=== PATIENT | male | born 1955 | race African-American/Black ===

== ENCOUNTER 2019-06-20 01:23 | Emergency (ER) | payer OTHER ==
[~2019-06-20] VITALS: Ht 180.3 cm; Wt 77.1 kg
[2019-06-20 01:28] VITALS: BP 140/90
--- NOTE | 2019-06-20 01:36 | NUR ---
ED Nurse Note: Patient brought in by ambulance with complaints of blood in urinary catheter. ERMd at bedside attempting to Dc and re-insert new sterile catheter.
[2019-06-20] MEDS ORDERED: BISACODYL10 M1 RC (01:49)
[2019-06-20] MEDS ORDERED: FLOMAX0.4 MG ORAL (01:49)
[2019-06-20] MEDS ORDERED: AMLODIPINE BESYL5 MG ORAL (01:49)
[2019-06-20] MEDS ORDERED: ACETAMINOPHEN500 M5 ORAL (01:49)
[2019-06-20] MEDS ORDERED: ELIQUIS5 MG PO (01:49)
[2019-06-20] MEDS ORDERED: ACETAMINOPHEN325 M1 ORAL (01:49)
[2019-06-20] MEDS ORDERED: COLACE100 MG ORAL (01:49)
--- NOTE | 2019-06-20 01:53 | Emergency Room Report ---
History of Present Illness General Chief Complaint: Pain Source: Patient Present Illness HPI This a 64-year-old male with a history of high blood pressure. He also has a psychiatric history with psychosis. He presents with chief complaint of pain over the suprapubic catheter area. He said is been ongoing for a week. Just painful. No nausea no vomiting. No fever chills but nothing made it better. Pulling at it or palpation made it worse. Similar symptom in the past. Allergies: Coded Allergies: No Known Allergies (Unverified , 06/20/19) Patient History Past Medical History: see triage record, old chart reviewed, HTN, psych hx Past Surgical History: other Pertinent Family History: none Social History: Denies: smoking Immunizations: other Reviewed Nursing Documentation: PMH: Agreed; PSxH: Agreed Nursing Documentation-PMH Past Medical History: No History, Except For Hx Hypertension: Yes History Of Psychiatric Problem: Yes - ANXIETY Review of Systems Eye: Denies: eye pain, blurred vision ENT: Denies: ear pain, nose congestion, throat swelling Respiratory: Denies: cough, shortness of breath Cardiovascular: Denies: chest pain, palpitations Gastrointestinal: Denies: abdominal pain, diarrhea, nausea, vomiting Genitourinary: Reports: dysuria, pain Musculoskeletal: Denies: back pain, joint pain Skin: Denies: rash Neurological: Denies: headache, numbness Endocrine: Denies: increased thirst, increased urine Hematologic/Lymphatic: Denies: easy bruising All Other Systems: negative except mentioned in HPI Physical Exam Vital Signs Date Time Temp Pulse Resp B/P (MAP) Pulse Ox O2 Delivery O2 Flow Rate FiO2 06/20/19 01:27 97.5 83 16 140/90 (107) 97 Room Air Vitals unremarkable Sp02 EP Interpretation: reviewed, normal General Appearance: well appearing, no apparent distress, alert Head: normocephalic, atraumatic Eyes: bilateral eye PERRL, bilateral eye EOMI ENT: hearing grossly normal, normal pharynx Neck: full range of motion, supple, no meningismus Respiratory: chest non-tender, lungs clear, normal breath sounds Cardiovascular #1: regular rate, rhythm, no murmur Gastrointestinal: normal bowel sounds, non tender, no mass, no organomegaly, no bruit, non-distended Genitourinary: other - He has a 24 Bulgarian catheter in. It appeared to be very old. Urine is cloudy. No erythema around the suprapubic catheter site. Musculoskeletal: back normal, normal range of motion Neurologic: grossly normal Psychiatric: other - Patient agitated and not cooperative. Procedures Additional Procedure Procedure Narrative Procedure: Suprapubic catheter placement/exchange Indication: Suprapubic catheter malfunction Description: I deflate the balloon. There was initially some difficulty removing the catheter. I tried to flush it but it would not flush. It was full of debris. I removed the catheter and there was full of debris and calcification on the inside and at the tip. I placed a 22 Bulgarian catheter without any difficulty. Balloon inflated. Urine removed. Patient tolerated procedure without any problem. Medical Decision Making Diagnostic Impression: Primary Impression: UTI (urinary tract infection) Qualified Codes: N30.01 - Acute cystitis with hematuria Additional Impression: Suprapubic catheter dysfunction Qualified Codes: T83.010A - Breakdown (mechanical) of cystostomy catheter, initial encounter ER Course Patient with a suprapubic catheter malfunction. It is blocked with calcification and debris. Patient has been urinating through his penis. Patient is not very cooperative. He refused blood work. He had recent blood work done less than a week ago and they were normal. Dose of antibiotics given here Last Vital Signs Date Time Temp Pulse Resp B/P (MAP) Pulse Ox O2 Delivery O2 Flow Rate FiO2 06/20/19 01:27 97.5 83 16 140/90 (107) 97 Room Air Status: improved Disposition: XFER SNF Condition: Stable Scripts Levofloxacin* (LEVAQUIN*) 500 Mg Tablet 500 MG ORAL DAILY, #7 TAB Prov: Bruce Weaver MD 06/20/19 Additional Instructions: Follow-up with your doctor in 7 days. return if symptoms worsen. Bruce Weaver MD Jun 20, 2019 01:53
[2019-06-20] MEDS ORDERED: DiphenhydrAMINE 50mg/ml Inj IM ONE (02:00)
[2019-06-20] MEDS ORDERED: Haloperidol 5mg/ml Inj IM ONE (02:00)
[2019-06-20] MEDS ORDERED: HYDROcodone/Acetamin 5/325 tab ORAL ONE ×2 (02:15→04:45)
[2019-06-20 02:30] LABS: APPEARANCE,URINE VERY CLOUDY; BILIRUBIN, URINE NEGATIVE (NEGATIVE); GLUCOSE, URINE (UA) NEGATIVE (NEGATIVE); KETONES,URINE 1+ (NEGATIVE); LEUKOCYTE ESTERASE ,URINE 3+ (NEGATIVE); NITRITE,URINE POSITIVE (NEGATIVE); PH,URINE 7 (4.5-8.0); PROTEIN,URINE 4+ (NEGATIVE); UROBILINOGEN,URINE NORMAL MG/DL (0.0-1.0)
[2019-06-20 02:43] LABS: COLOR,URINE AMBER
[2019-06-20] MEDS ORDERED: Levofloxacin 500mg tab ORAL ONE (03:00)
[2019-06-20] MEDS ORDERED: LEVAQUIN500 MG ORAL (03:16)
--- NOTE | 2019-06-20 04:29 | NUR ---
Spoke with Braulio ren [facility]-aware of patients return back home.
[2019-06-20 04:32] VITALS: BP 140/90
--- NOTE | 2019-06-20 04:32 | NUR ---
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 patient in stable condition, requested pain medication prior to departure. Medication rendered as ordered by ERMD.
== END 2019-06-20 04:32 ==
LOC: EDBD 01:23 → EMR 02:02
DX: T83.010A Breakdown (mechanical) of cystostomy catheter, initial encounter (principal); N30.01 Acute cystitis with hematuria; F41.9 Anxiety disorder, unspecified; X58.XXXA Exposure to other specified factors, initial encounter; Y92.9 Unspecified place or not applicable
CPT/HCPCS: 51702; 81003; 87086; 87181; 96372; J1200; J1630; Z7502; 99284

== ENCOUNTER 2019-11-26 08:19 | Inpatient (IN) | payer OTHER ==
[~2019-11-26] VITALS: Ht 175.3 cm; Wt 77.1 kg
[2019-11-26 08:19] VITALS: BP 134/72
[~2019-11-26 08:19] MED LIST: ACETAMINOPHEN325 M1 ORAL; ACETAMINOPHEN500 M5 ORAL; AMLODIPINE BESYL5 MG ORAL; BISACODYL10 M1 RC; COLACE100 MG ORAL; ELIQUIS5 MG PO; FLOMAX0.4 MG ORAL; LEVAQUIN500 MG ORAL
--- NOTE | 2019-11-26 08:29 | NUR ---
ED Nurse Note: Pt from [facility] brought in by [facility] due to abd pain and suprapubic clogging for a couple of days. Pt is also reported to be positive for covid. AAO x1, noted to be uncooperative and yells at ED staff. No respiratory distress.
[2019-11-26] MEDS ORDERED: VITAMIN B-1100 MG ORAL (08:31)
[2019-11-26] MEDS ORDERED: MULTIVITAMINS1 EAC8 ORAL (08:31)
[2019-11-26] MEDS ORDERED: MELATONIN5 M5 ORAL (08:31)
[2019-11-26] MEDS ORDERED: NORVASC10 MG ORAL (08:31)
[2019-11-26] MEDS ORDERED: NEURONTIN100 MG ORAL (08:31)
--- NOTE | 2019-11-26 08:35 | NUR ---
ED Nurse Note: Pt refused to be on a hospital gown and keeps refusing IV access. Dr Marx notified and ordered to cancel blood works.
--- NOTE | 2019-11-26 08:41 | Emergency Room Report ---
History of Present Illness General Chief Complaint: Abdominal Pain Source: Patient, Medical Record, EMS Present Illness HPI Disclaimer: Please note that this report is being documented using DRAGON technology. This can lead to erroneous entry secondary to incorrect interpretation by the dictating instrument. HPI: 64-year-old male presents from [facility] for evaluation of clogged suprapubic catheter. According to EMS catheter is been clogged for several days patient complaining of suprapubic pain. He has a history of psychiatric disorder and is agitated on arrival complaining of persistent belly pain. No reported fevers, vomiting or other changes in his health reported. 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 EOMI. Resp: Normal work of breathing Abdomen: Soft, nontender, tenderness in the suprapubic region. Suprapubic catheter in place, 16 Setswana. Unable to draw or flush Skin: Intact. No abrasions, laceration or rash over the exposed skin MSK: Normal tone and bulk. Moving all extremities. No obvious deformity. Neuro: Awake, combative with staff, refusing medical exam. Agitated. Medical Decision Making Restraint Reassesment I, Yuval Marx MD, have personally evaluated this patient. Laboratory tests have been reviewed and addressed accordingly. The patient is deemed to present a danger to themselves and/or others. This is based on the exam, history ( provided by patient, EMS/[facility] and/or family) and observed or reported behavior. Attempts for non-invasive measures have been considered and/or attempted, however, have been futile. It is in the best interest of the nursing staff, the patient, and others involved in this patient's care that behavioral restraints be applied. Patient evaluation reveals the following: Delirium, combativeness, danger to staff Diagnostic Impression: Primary Impression: Suprapubic catheter dysfunction Additional Impressions: UTI (urinary tract infection) Agitation ER Course This is 64-year-old male presenting from [facility] facility with a suprapubic catheter that appears to be malfunctioning. Unable to flush or draw from the suprapubic catheter and the patient has had history of obstruction in the past. Patient is combative with staff and agitated. For his and for staff safety restraints were used and the patient was mildly sedated. Attempted to replace the suprapubic catheter at bedside however was unable to deflate the balloon. Dr. Riojas from urology was consulted who was able to remove the old Siddiqui stating that it was significantly clogged with debris. He was able to replace with a new suprapubic catheter. He had recommended IV antibiotics and admission. I discussed with the patient's PMD, Dr. Joseph, will admit the patient onto his service. He will be kept in isolation as he is recent tested positive for COVID-19. Denies respiratory symptoms at this time. Laboratory Tests Test 11/26/19 08:37 11/26/19 12:30 Urine Color Brown Urine Appearance Slightly cloudy Urine pH 6.5 (4.5-8.0) Urine Specific [place] 1.020 (1.005-1.035) Urine Protein 4+ (NEGATIVE) H Urine Glucose (UA) Negative (NEGATIVE) Urine Ketones 3+ (NEGATIVE) H Urine Blood 5+ (NEGATIVE) H Urine Nitrite Positive (NEGATIVE) H Urine Bilirubin Negative (NEGATIVE) Urine Urobilinogen 1 MG/DL (0.0-1.0) H Urine Leukocyte Esterase 3+ (NEGATIVE) H Urine RBC 60-80 /HPF (0 - 0) H Urine WBC 60-80 /HPF (0 - 0) H Urine Squamous Epithelial Cells Occasional /LPF Urine Bacteria Many /HPF (NONE) H White Blood Count 8.6 K/UL (4.8-10.8) Red Blood Count 5.57 M/UL (4.70-6.10) Hemoglobin 14.4 G/DL (14.2-18.0) Hematocrit 43.6 % (42.0-52.0) Mean Corpuscular Volume 78 FL (80-99) L Mean Corpuscular Hemoglobin 25.8 PG (27.0-31.0) L Mean Corpuscular Hemoglobin Concent 33.0 G/DL (32.0-36.0) Red Cell Distribution Width 11.8 % (11.6-14.8) Platelet Count 327 K/UL (150-450) Mean Platelet Volume 6.5 FL (6.5-10.1) Neutrophils (%) (Auto) % (45.0-75.0) Lymphocytes (%) (Auto) % (20.0-45.0) Monocytes (%) (Auto) % (1.0-10.0) Eosinophils (%) (Auto) % (0.0-3.0) Basophils (%) (Auto) % (0.0-2.0) Differential Total Cells Counted 100 Neutrophils % (Manual) 65 % (45-75) Lymphocytes % (Manual) 25 % (20-45) Monocytes % (Manual) 10 % (1-10) Eosinophils % (Manual) 0 % (0-3) Basophils % (Manual) 0 % (0-2) Band Neutrophils 0 % (0-8) Platelet Estimate Adequate Platelet Morphology Normal Red Blood Cell Morphology Microcytosis 1+ Sodium Level 140 MMOL/L (136-145) Potassium Level 4.2 MMOL/L (3.5-5.1) Chloride Level 103 MMOL/L (98-107) Carbon Dioxide Level 24 MMOL/L (21-32) Anion Gap 13 mmol/L (5-15) Blood Urea Nitrogen 14 mg/dL (7-18) Creatinine 0.8 MG/DL (0.55-1.30) Estimated Glomerular Filtration Rate > 60 mL/min (>60) Glucose Level 104 MG/DL (74-106) Calcium Level 9.3 MG/DL (8.5-10.1) Last Vital Signs Date Time Temp Pulse Resp B/P (MAP) Pulse Ox O2 Delivery O2 Flow Rate FiO2 11/26/19 08:19 98.4 88 18 134/72 (92) 96 Room Air Disposition: ADMITTED INPATIENT Condition: Serious Referrals: Venu Joseph MD (PCP) Yuval Marx MD November 26, 2019 08:41
[2019-11-26] MEDS ORDERED: Morphine Sulfate 4mg/ml Inj (IV USE ONLY) IVP ONE (08:45)
[2019-11-26] MEDS ORDERED: Haloperidol 5mg/ml Inj IM ONE ×3 (08:45→11:45)
[2019-11-26 08:56] LABS: APPEARANCE,URINE SLIGHTLY CLOUDY; BILIRUBIN, URINE NEGATIVE (NEGATIVE); GLUCOSE, URINE (UA) NEGATIVE (NEGATIVE); KETONES,URINE 3+ (NEGATIVE); LEUKOCYTE ESTERASE ,URINE 3+ (NEGATIVE); NITRITE,URINE POSITIVE (NEGATIVE); PH,URINE 6.5 (4.5-8.0); PROTEIN,URINE 4+ (NEGATIVE); UROBILINOGEN,URINE 1 MG/DL (0.0-1.0)
[2019-11-26 08:57] LABS: COLOR,URINE BROWN
[2019-11-26] MEDS ORDERED: LORazepam Inj 2mg/ml 1ml IM ONE (09:15)
[2019-11-26 11:00] VITALS: BP 129/75
[2019-11-26] MEDS ORDERED: Mineral Oil 30ml ud ORAL ONE (11:15)
--- NOTE | 2019-11-26 12:00 | NUR ---
ED Nurse Note: Dr John at the bed side for removal of old suprapubic cath. Noted old crusting and foul smell. Inserted a new hernandez cath on suprapubic.
[2019-11-26] MEDS ORDERED: Piperacillin/Tazobactam 3.375 GM in NS 110 ML IVPB ONE (12:15)
[2019-11-26] MEDS ORDERED: Lidocaine 1% Plain 30 ml INJ ONE (12:15)
--- NOTE | 2019-11-26 12:43 | NUR ---
ED Nurse Note: Collected blood then sent.
[2019-11-26] MEDS ORDERED: Zosyn 3.375gm inj ONE (12:52)
[2019-11-26] MEDS ORDERED: cefTRIAXone 1gm/NS 55ml IVPB SCH ×2 (13:00)
[2019-11-26 13:10] VITALS: BP 133/74
[2019-11-26 14:10] LABS: ANION GAP 13 mmol/L (5-15); BLOOD UREA NITROGEN 14 mg/dL (7-18); CALCIUM 9.3 MG/DL (8.5-10.1); CARBON DIOXIDE 24 MMOL/L (21-32); CHLORIDE 103 MMOL/L (98-107); CREATININE 0.8 MG/DL (0.55-1.30); HEMATOCRIT 43.6 % (42.0-52.0); HEMOGLOBIN 14.4 G/DL (14.2-18.0); MEAN CORPUSCULAR VOLUME 78 FL (80-99); PLATELET COUNT 327 K/UL (150-450); POTASSIUM 4.2 MMOL/L (3.5-5.1); RED BLOOD COUNT 5.57 M/UL (4.70-6.10); RED CELL DISTRIBUTION WIDTH 11.8 % (11.6-14.8); SODIUM 140 MMOL/L (136-145); WHITE BLOOD COUNT 8.6 K/UL (4.8-10.8)
[2019-11-26 15:35] VITALS: BP 127/75
--- NOTE | 2019-11-26 15:50 | NUR ---
ED Nurse Note: Report given to Starr LOCK of Med Surg unit.
--- NOTE | 2019-11-26 15:52 | NUR ---
ED Nurse Note: Pt transferred to Med Surg unit via [facility] with his belongings. Covid19 transfer announced.
--- NOTE | 2019-11-26 16:30 | NUR ---
NURSE NOTES: Received patient from ER,patient alert to name,patient knows he is in the hospital,otherwise confused.Respirations unlabored.Noted supra pubic catheter with dark red urine noted.ER report supra pubic catheter was changed in ER today.Patient saline lock in right hand in place.Patient has on street closed,refusing to put on hospital gown,will attempt later.Bed alarm is on,call light within reach.
[2019-11-26] MEDS ORDERED: Acetaminophen 500mg (ES) tab ORAL PRN (16:45)
[2019-11-26] MEDS ORDERED: Haloperidol 5mg/ml Inj IM PRN (16:45)
[2019-11-26] MEDS ORDERED: LORazepam Inj 2mg/ml 1ml IV PRN (16:45)
--- NOTE | 2019-11-26 18:30 | NUR ---
NURSE NOTES: Patient continue to refuse hospital gown,supra pubic catheter still draining dark blood tinge urine.Call light within reach,bed alarm on.
--- NOTE | 2019-11-26 19:48 | NUR ---
HAND-OFF: Report given to CONCEPCION RN aware of fall risk..
--- NOTE | 2019-11-26 19:58 | NUR ---
NURSE NOTES: Pt is in bed, awake. No acute distress noted. No SOB.Room air. Pt has a suprapubic cath that was replaced in ER, draining dark red urine. Pt does not complain of any pain now. Fall precaution in place, side rails up, bed locked low in position, call light within reach. Bed alarm on. Pt will be monitored.
[2019-11-26 20:00] VITALS: BP 129/72
[2019-11-26] MEDS: D5 1/2NS 1,000 ML IV SCH (20:02)
[2019-11-26] MEDS: Heparin 5000 units/ml inj SUBQ SCH (21:00)
[2019-11-26] MEDS: Tamsulosin 0.4mg cap ORAL SCH (21:00)
--- NOTE | 2019-11-26 21:30 | Consultation ---
DATE OF CONSULTATION: 11/26/2019 UROLOGY CONSULTATION CONSULTING PHYSICIAN: Bruno Riojas MD. ATTENDING/REFERRING PHYSICIAN: Yuval Marx MD from emergency department. CHIEF COMPLAINT/HISTORY OF PRESENT ILLNESS: I asked by Dr. Marx to evaluate this 64-year-old, gentleman regarding a history of a clogged and stuck suprapubic catheter, which cannot be removed. Briefly, patient has a history of a suprapubic catheter, which was used to drain his bladder. Patient has significant psychiatric disorders and cannot tell me as why he has a suprapubic catheter. Apparently, this has been a chronic thing. It is uncertain as to when the last time the tube was changed. He presented to the hospital with a history of suprapubic pain. The catheter was found to be infected and clogged. The balloon port cannot be deflated and as such I was asked to evaluate the patient. PAST MEDICAL HISTORY: 1. Urinary retention, not otherwise specified. 2. COVID-19 positive. 3. Psychiatric disorder, not otherwise specified. 4. Hypertension. MEDICATIONS: Please see the chart for current medications administration details. PAST SURGICAL HISTORY: Suprapubic catheter placement, otherwise unknown. ALLERGIES: No known drug allergies. SOCIAL HISTORY: Unobtainable. FAMILY HISTORY: Unobtainable. REVIEW OF SYSTEMS: A 14-system review of systems cannot be really done as patient cannot really cooperate much with questioning. PHYSICAL EXAMINATION: GENERAL: Patient is an older gentleman, awake and alert. Mild distress. Uncertain orientation. HEENT: NC/AT. EOMI. Oropharynx clear. NECK: Supple. CHEST: Within normal limits. ABDOMEN: Soft, nontender, nondistended. EXTREMITIES: Warm, well perfused. No cyanosis, clubbing, or edema. BACK: No CVA tenderness to percussion appreciable. NEUROLOGIC: Notable for dementia/psychiatric disorder. Patient cannot cooperate with the remainder of the exam. GENITOURINARY: Reveals a suprapubic catheter site with a catheter in place. There is scant output and it looked infected and dirty. There is a circumcised male phallus. No discharge, lesions, or curvature. There are bilateral descended testes and cord structures with no masses or tenderness to palpation. LABORATORY DATA: Urinalysis specific gravity 1.020, pH 6.5. Dip test notable for 4+ protein, 3+ ketones, 5+ occult blood, positive nitrites, and 3+ leukocyte esterase. Microanalysis with 60 to 80 white and red blood cells per high-power field and many bacteria seen. Urine culture is pending. DIAGNOSTIC IMAGING: None. ASSESSMENT AND PLAN: In summary, patient is a 64-year-old with a history of urinary retention. He apparently admitted with management of the suprapubic catheter. It is uncertain as to when the last time this was changed, but patient presents with an infected, clogged, and stuck suprapubic catheter. Physical exam revealed the same. Laboratory data is notable for evidence of urinary tract infection. A culture has been sent. There is no relevant diagnostic imaging. Today at the bedside, I attempted to deflate and remove this patient's catheter. The balloon port would not deflate despite multiple attempts to do so. The balloon port was then cut and a wire was passed down the port to try to unclog it. This failed again to allow me to remove the fluid and the balloon. I then tried flushing fluid down the balloon port to try to clear any debris, which was remaining. Once this was done, I could draw back fluid and deflate the balloon. With some difficulty, once the balloon was deflated, I was able to pull out the suprapubic catheter. It appeared to be difficult on top of the balloon having been stuck because there was significant calcification and on the chronic catheter from chronic indwelling use. Once it was out with some difficulty, I was able to negotiate a new 20-Argentine suprapubic catheter into the bladder. I was able to hand irrigate it and it easily indicating good position within the bladder. There were some bloody output and clots and debris as expected. The catheter was inflated and left to gravity drainage. I recommend keeping the patient on broad-spectrum antibiotics. The current suprapubic catheter can remain in place till next month before he is due for change again. Thank you for allowing me to participate in care of this unfortunate gentleman. Please do not hesitate to contact me with any questions that you may further have regarding his care. I will see him with you as needed. Bruno Riojas M.D. DR: CHARLIE JOB#: [id number] CC:
--- NOTE | 2019-11-26 22:15 | History & Physical ---
History and Physical History & Physicial History and Physical HPI: Patient is a 64-year-old male presents from [facility] for evaluation of clogged suprapubic catheter, UTI. He has a history of Hypertension, DVT, Psychiatric disorder, Covid19 positive No reported fevers , vomiting or other changes in his health reported. Allergies: No Known Allergies Past Medical History: Yes All Other Systems: limited - Poor historian into his health conditions FH:NC SH: NC Physical Exam Vital Signs Noted Date Time Temp Pulse Resp B/P (MAP) Pulse Ox O2 Delivery O2 Flow Rate FiO2 11/26/19 08:19 98.4 88 18 134/72 (92) 96 Room Air General: Awake, agitated, combative with staff HEENT: NC/AT. EOMI. Resp: Normal work of breathing Abdomen: Soft, nontender, tenderness in the suprapubic region. Suprapubic catheter in place, 16 Japanese. Skin: Intact. No abrasions, laceration or rash over the exposed skin MSK: Normal tone and bulk. Moving all extremities. No obvious deformity. Neuro: Awake, combative with staff, refusing medical exam. Agitated. Impression: Suprapubic catheter dysfunction Urinary tract infection Covid19 infection Previous DVT Hypertension Plan: Urology Consultation IV Antibiotics IVF PRN VEHICLE BODY BUILDER Medications Psychiatric Consultation PPX Monitor labs Labs noted UA s/o UTI Jose J Nieto MD November 26, 2019 22:15
[2019-11-26] MEDS: Piperacillin/Tazobactam 3.375 GM in NS 110 ML IVPB SCH (22:55)
[2019-11-27] VITALS: BP 138/80
--- NOTE | 2019-11-27 01:30 | Consultation ---
DATE OF CONSULTATION: 11/26/2019 HISTORY OF PRESENT ILLNESS: This is an 64-year-old male who is well familiar to me from [facility]. The patient is here for medical stabilization. The patient is more confused than baseline. The patient has episodes of agitation, has been uncooperative, and agitated. PAST PSYCHIATRY HISTORY: Significant for insomnia, depression, psychotic disorder. PAST MEDICAL HISTORY: Significant for UTI, suprapubic catheter dysfunction. ALLERGIES: No known drug allergies. SUBSTANCE ABUSE HISTORY: No known history of illicit drug use or alcohol. MENTAL STATUS EXAMINATION: The patient is awake and disoriented. Mood is agitated. Affect is flat. Thought process is disorganized. Thought content, no suicidal or homicidal ideation. Cognition is impaired. Insight and judgment are impaired. ASSESSMENT: AXIS I: Psychotic disorder. Acute encephalopathy. AXIS II: Deferred. AXIS III: As above. AXIS IV: Low. AXIS V: 25. PLAN: 1. We will start the patient on Zyprexa 10 mg at bedtime. 2. Zyprexa 5 mg in the morning. 3. Continue to follow and readjust the medications. Sami Estrada M.D. DR: Enrique JOB#: [id number] CC: JENNY
--- NOTE | 2019-11-27 02:00 | NUR ---
NURSE NOTES: Pt keeps on getting out of bed to go to the bathroom. Fall precaution in place, bed alarm on. Pt asked to call for assistance before getting out of bed. Pt report lower abdominal pain and requesting pain medication, Dr. Joseph is called and message left. Awaiting call back. Pt will be monitored. Suprapubic cath is anchored in place.
[2019-11-27] MEDS: Tamsulosin 0.4mg cap ORAL SCH ×2 (02:32→21:00)
[2019-11-27 04:00] VITALS: BP 124/69
[2019-11-27] MEDS: Piperacillin/Tazobactam 3.375 GM in NS 110 ML IVPB SCH ×3 (05:00→21:00)
--- NOTE | 2019-11-27 06:50 | NUR ---
NURSE NOTES: Pt refuses blood draw for morning lab despite education and encouragement. Pt's IV cath came out, pt refuses to have another IV cath placed . ABX on hold now. DR. Nieto notified.
[2019-11-27] MEDS ORDERED: HYDROmorphone 1mg/ml Carpuject IVP PRN (07:00)
--- NOTE | 2019-11-27 07:14 | NUR ---
HAND-OFF: Report given to ASHVIN Servin. Pt's suprapubic catheter is out, no bleeding at the site. Dr. Nieto notified. Dr. Riojas is called and message left with Qi to forward message to DR. Riojas. endorsed to ASHVIN Servin to call Dr. Estrada for Psych issues. Informed that patient is high fall risk.
--- NOTE | 2019-11-27 07:15 | NUR ---
NURSE NOTES: Patient awake lying in bed ,patient suprapubic catheter is out.Patient IV out,Patient state he is not aware that supra pubic catheter is out.No bleeding noted a catheter site. DR will be notified.Call light within reach.Bed alarm on.
[2019-11-27 08:25] VITALS: BP 135/78
[2019-11-27] MEDS ORDERED: LORazepam Inj 2mg/ml 1ml IM PRN ×2 (08:45→11:15)
--- NOTE | 2019-11-27 08:46 | General Progress Note ---
Progress Note Progress Note Came to see pt after he ripped out his new SP tube Combative and agitated. Uncooperative and refuses rpt SP tube placement AFVSS PE- abd soft, NT, ND - SP site open Ext WWP A/P- Urinary retention NOS managed with SP tube Removed and replaced infected, clogged, encrusted tube yesterday Now pt has ripped out new SP tube and refuses replacement Combative and difficult Left VM for Dr. Opal lassiter same. Bruno Riojas M.D. November 27, 2019 08:46
--- NOTE | 2019-11-27 08:48 | General Progress Note ---
Progress Note Progress Note Came to see pt after he ripped out his SP tube this AM. Combative and agitated , refuses replacement of same. AFVSS PE- abd appears NT, ND, soft - no changes. SP site open Ext WWP A/P- Urinary retention NOS managed with SP tube Removed and replaced infected, clogged and encrusted old tube yesterday and replaced with new Now pt has ripped out new tube and refuses replacement Combative, agitated and uncooperative Will sign off given same. Left VM for Bruno Guadarrama same, M.D. November 27, 2019 08:48
[2019-11-27] MEDS: D5 1/2NS 1,000 ML IV SCH (08:52)
[2019-11-27] MEDS: Docusate 100mg cap ORAL SCH (09:00)
[2019-11-27] MEDS: Heparin 5000 units/ml inj SUBQ SCH ×2 (09:00→21:00)
--- NOTE | 2019-11-27 09:00 | NUR ---
CHARGE NURSE NOTE: was not able to insert a new suprapubic cath (all equipment was prepared for procedure- placed at the bed side). Pt pas a psych.issue, combative, refusing everything. Pt was sedated with Ativan, Haldol. Pt refused Suprapubic cath. Sedation did not help much. notified. Pt needs a psychiatric evaluation. will evaluate patient.
--- NOTE | 2019-11-27 10:06 | Diagnostic Imaging Report ---
EXAM: XR Abdomen, 1 Views CLINICAL HISTORY: ABD PAIN TECHNIQUE: Frontal view of the abdomen/pelvis . COMPARISON: No relevant prior studies available. FINDINGS: Gastrointestinal tract: Unremarkable. No dilation. Bones/joints: Left iliac bone hardware. Vasculature: IVC filter. Other findings: Calcific density overlying the pelvis, not fully imaged. IMPRESSION: 1. No bowel obstruction. 2. Calcific density overlying the pelvis, not fully imaged.
--- NOTE | 2019-11-27 11:25 | NUR ---
NURSE NOTES: Patient refusing care,refusing medication as ordered.DR Méndez here to evaluate patient.
[2019-11-27 12:10] VITALS: BP 142/85
--- NOTE | 2019-11-27 13:16 | Pulmonology Progress Note ---
Subjective ROS Limited/Unobtainable: No Allergies: Coded Allergies: No Known Allergies (Unverified , 06/20/19) Objective Last 24 Hour Vital Signs Date Time Temp Pulse Resp B/P (MAP) Pulse Ox O2 Delivery O2 Flow Rate FiO2 11/27/19 12:10 98.2 78 18 142/85 (104) 96 11/27/19 08:25 97.3 102 18 135/78 (97) 96 11/27/19 04:00 98.6 94 19 124/69 (87) 96 11/27/19 00:00 98.0 92 19 138/80 (99) 96 11/26/19 21:00 Room Air 11/26/19 21:00 Room Air 11/26/19 20:00 98.2 87 19 129/72 (91) 95 11/26/19 17:36 Room Air 11/26/19 15:52 98.7 74 16 127/75 99 Room Air 11/26/19 15:35 98.7 74 16 127/75 99 Room Air Intake and Output 11/26/19 11/27/19 19:00 07:00 Intake Total 265 ml 765.10 ml Output Total 175 ml 250 ml Balance 90 ml 515.10 ml Intake IV Total 265 ml 765.10 ml Output Urine Total 175 ml 250 ml # Voids 1 1 # Bowel Movements 1 Microbiology Date/Time Source Procedure Growth Status 11/26/19 08:37 Urine,Clean Catch Urine Culture - Preliminary Gram Negative Bacillus 1 Resulted 11/26/19 08:37 Rectum Received Current Medications Medications (Trade) Dose Ordered Sig/Stiven Route PRN Reason Start Time Stop Time Status Last Admin Dose Admin Acetaminophen (Tylenol) 500 mg Q4H PRN ORAL Mild Pain (Pain Scale 1-3) 11/26/19 16:45 12/26/19 16:44 Acetaminophen (Tylenol) 650 mg Q4H PRN ORAL Mild Pain (Pain Scale 1-3) 11/26/19 15:45 12/26/19 15:44 Acetaminophen (Tylenol) 650 mg Q4H PRN ORAL Temp >100.5 11/26/19 15:45 12/26/19 15:44 Acetaminophen/ Hydrocodone Bitart ([place] 5/325) 1 tab Q6H PRN ORAL Moderate Pain (Pain Scale 4-6) 11/27/19 07:00 12/04/19 06:59 Dextrose/Sodium Chloride 1,000 ml @ 60 mls/hr [id number] IV 11/26/19 16:12 11/27/19 16:11 11/26/19 20:02 Docusate Sodium (Colace) 100 mg DAILY ORAL 11/27/19 09:00 12/27/19 08:59 Gabapentin (Neurontin) 100 mg DAILY ORAL 11/27/19 09:00 12/27/19 08:59 Haloperidol Lactate (Haldol) 5 mg Q6H PRN IM Agitation 11/26/19 16:45 01/10/20 16:44 11/27/19 08:29 Heparin Sodium (Porcine) (Heparin 5000 units/ml) 5,000 units EVERY 12 HOURS SUBQ 11/26/19 21:00 01/10/20 20:59 Hydromorphone HCl (Dilaudid) 0.5 mg Q3H PRN IVP Severe Pain (Pain Scale 7-10) 11/27/19 07:00 12/04/19 06:59 Lorazepam (Ativan 2mg/ml 1ml) 2 mg Q6H PRN IM Agitation 11/27/19 11:15 12/04/19 11:14 Multivitamins (Multivitamins) 1 tab DAILY ORAL 11/27/19 09:00 12/27/19 08:59 Olanzapine (ZyPREXA) 5 mg DAILY ORAL 11/27/19 09:00 01/11/20 08:59 Olanzapine (ZyPREXA) 10 mg BEDTIME ORAL 11/27/19 21:00 01/11/20 20:59 Ondansetron HCl (Zofran) 4 mg Q6H PRN IVP Nausea & Vomiting 11/26/19 15:45 12/26/19 15:44 Piperacillin Sod/ Tazobactam Sod 3.375 gm/Sodium Chloride 110 ml @ 27.5 mls/hr Q8H IVPB 11/26/19 21:00 12/03/19 20:59 11/27/19 05:00 Tamsulosin HCl (Flomax) 0.4 mg BEDTIME ORAL 11/26/19 21:00 12/26/19 20:59 11/27/19 02:32 Assessment/Plan Assessment/Plan Progress Note HPI: Patient is a 64-year-old male presents from [facility] for evaluation of clogged suprapubic catheter, UTI. He has a history of Hypertension, DVT, Psychiatric disorder, Covid19 positive No reported fevers , vomiting or other changes in his health reported. Allergies: No Known Allergies Past Medical History: Yes All Other Systems: limited - Poor historian FH:NC SH: NC Physical Exam Vital Signs Noted General: Awake, drowsy currently HEENT: NC/AT. EOMI. Resp: Normal work of breathing Abdomen: Soft, nontender, some tenderness in the suprapubic region. Skin: Intact. No abrasions, laceration or rash over the exposed skin MSK: Normal tone and bulk. Moving all extremities. No obvious deformity. Neuro: Drowsy, no focal signs Impression: Suprapubic catheter dysfunction Urinary tract infection Covid19 infection Previous DVT Hypertension Plan: Urology Consultation noted - patient refusing reinsertion Suprapubic IV Antibiotics IVF PRN [employer]ENTICE Medications Psychiatric Consultation noted PPX Monitor labs Labs noted UA s/o UTI, GNR on culture DEVI RN, Psychiatry Jose J Nieto MD November 27, 2019 13:16
[2019-11-27 16:00] VITALS: BP 136/88
--- NOTE | 2019-11-27 18:00 | NUR ---
NURSE NOTES: Patient was incontinent of urine,patient allow the chux to be changed.patient asked for his urinal.Attempt to restart IV,patient state no.Bed alarm on,call light within reach.
--- NOTE | 2019-11-27 19:25 | NUR ---
NURSE NOTES: Charge Nurse Nikki state that per DR Nieto,to monitor patient aware hernandez catheter not inserted.WILL monitor and endorse to oncoming nurse.
--- NOTE | 2019-11-27 19:45 | NUR ---
HAND-OFF: Report given to Kelly LOCK,aware of fall risk..
[2019-11-27 20:00] VITALS: BP 126/69
--- NOTE | 2019-11-27 20:00 | NUR ---
NURSE NOTES: Received patient awake in bed, agitated, does not want to respond to questions, no s/s of acute distress. No IV access. unable to reinsert suprapubic catheter, monitor drainage per Dr Nieto. Bed low and locked.
[2019-11-27] MEDS: OLANZapine 10mg tab ORAL SCH (21:00)
[2019-11-28] VITALS: BP 132/70
[2019-11-28 04:00] VITALS: BP 125/73
[2019-11-28] MEDS: Piperacillin/Tazobactam 3.375 GM in NS 110 ML IVPB SCH ×3 (04:19→21:00)
--- NOTE | 2019-11-28 07:25 | NUR ---
HAND-OFF: Report given to ASHVIN Jensen.
--- NOTE | 2019-11-28 07:41 | NUR ---
NURSE NOTES: Report received from Kelly LOCK. Patient seen on rounds, asleep but easily rousable, not in distress, tolerating room air. Nurse reports that patient refused medication last night. No IV access, patient pulled out PIV yesterday, MD Dr. Nieto aware. Suprapubic monitor side with abdominal pad dressing. Nurse reports patient is using the urinal to void. Bed low and locked, siderails up x2, zone alarms on 1, call light within reach and instructed to call nurse for assistance. Will continue to monitor.
--- NOTE | 2019-11-28 08:35 | General Progress Note ---
Assessment/Plan Assessment/Plan: Impression: Suprapubic catheter dysfunction Urinary tract infection Covid19 infection+ Previous DVT Hypertension paraparesis Plan: Urology Consultation noted - patient refusing reinsertion Suprapubic IV Antibiotics- await final cultures isolation Psychiatric Consultation noted Monitor labs dc planning impression, plan, and exam edited and reviewed in detail care discussed with RN Subjective Allergies: Coded Allergies: No Known Allergies (Unverified , 06/20/19) Subjective care noted refusing SP placement Objective Last 24 Hour Vital Signs Date Time Temp Pulse Resp B/P (MAP) Pulse Ox O2 Delivery O2 Flow Rate FiO2 11/28/19 04:00 98.7 89 18 125/73 (90) 98 11/28/19 00:00 98.6 80 18 132/70 (90) 98 11/27/19 22:12 Room Air 11/27/19 22:11 Room Air 11/27/19 20:00 97.0 99 18 126/69 (88) 98 11/27/19 16:00 98.6 72 18 136/88 (104) 98 11/27/19 12:10 98.2 78 18 142/85 (104) 96 11/27/19 09:00 Room Air 11/27/19 09:00 Room Air Intake and Output 11/27/19 11/28/19 19:00 07:00 Intake Total 360 ml Balance 360 ml Other 360 ml # Voids 2 Objective WDWN NAD clear breath sounds bilaterally without rhonchi or wheeze [id number] without MRG NABS nontender no HSM no CCE nonfocal confused paraparesis Venu Joseph MD Nov 28, 2019 08:35
[2019-11-28] MEDS: Docusate 100mg cap ORAL SCH (10:00)
--- NOTE | 2019-11-28 11:28 | NUR ---
NURSE NOTES: Labs called to inform that patient has active MRSA in nares. Dr Joseph notified, awaiting response.
--- NOTE | 2019-11-28 11:31 | NUR ---
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
--- NOTE | 2019-11-28 11:31 | Progress Note ---
DATE: 11/27/2019 SUBJECTIVE: The patient was uncooperative, not able to be engaged, cath is out. Urologist is unable to place it back in. The patient was uncooperative and agitated the urologist episode of agitation. During my evaluation, he is calm; however, uncooperative and will not follow commands MENTAL STATUS EXAMINATION: The patient is awake and disoriented. Mood is anxious. Affect is flat. Thought process is concrete. Thought content, positive for delusions. Cognition is impaired. Insight and judgment impaired. ASSESSMENT: Acute encephalopathy. PLAN: 1. . 2. IM. 3. Zyprexa. 4. The patient uncomfortable . 5. Discussed with the . Sami Estrada M.D. DR: CARL JOB#: [id number] CC: JENNY
[2019-11-28] MEDS: Heparin 5000 units/ml inj SUBQ SCH ×2 (11:47→20:23)
[2019-11-28 12:00] VITALS: BP 122/71
--- NOTE | 2019-11-28 12:14 | NUR ---
*-* INSURANCE *-* ALL AVAILABLE CLINICALS HAVE BEEN FAXED TO: [employer]#[id number] #[phone] FAX#[phone] REVIEWS/CLINICALS
--- NOTE | 2019-11-28 15:48 | NUR ---
CASE MANAGEMENT:INITIAL REVIEW 11/26/19 64 YR OLD MALE BIBA FROM [facility] CC;ABDOMINAL PAIN SI;UTI. SUPRAPUBIC CATH DYSFUNCTION. COVID-19 VIRAL INFECTION. 98.5 88 18 134/72 96% ON RA US+ PROTEIN, KETONES, BLOOD, NITRITE, UROBILI, LEUKOCYTE, RBC, WBC, BACTERIA ABD X-RAY ~ 1. No bowel obstruction. 2. Calcific density overlying the pelvis, not fully imaged. IS;MORPHINE IV ONCE HALDOL IM X2 LORAZEPAM IM ONCE ZOSYN IV ONCE ROCEPHIN IV ONCE ADMITTED TO MED SURG @ 1438 ON 11/26/19 MED SURG STATUS DCP;FROM [facility] CASE MANAGEMENT:REVIEW 11/28/19 SI;UTI. SUPRAPUBIC CATH DYSFUNCTION. PARAPARESIS. COVID-19 VIRAL INFECTION 98.7 89 18 132/70 98% ON RA IS;ZOSYN IV Q8 HRS HEPARIN SUBQ Q12 HRS FLOMAX PO HS MED SURG STATUS DCP;FROM [facility]
[2019-11-28 16:00] VITALS: BP 132/81
[2019-11-28] MEDS: HYDROcodone/Acetamin 5/325 tab ORAL PRN (18:13)
--- NOTE | 2019-11-28 19:05 | NUR ---
NURSE NOTES: Received report from ASHVIN Jensen. Pt resting in bed, on room air, AAO x 2. Using urinal and light kal color urine noted. No drainage on supra pubic cath site and dressing clean and dry. No IV access and MD aware. Pt still refusing IV insertion. Education given for IV meds but still refused x 3. Isolation maintained. Bed locked, lowest position, alarm on, side rails up, call light within reach. Will continue to monitor.
--- NOTE | 2019-11-28 19:31 | NUR ---
HAND-OFF: Report given to Mojgan LOCK.
[2019-11-28 20:00] VITALS: BP 129/76
[2019-11-28] MEDS: OLANZapine 10mg tab ORAL SCH (20:19)
[2019-11-28] MEDS: Tamsulosin 0.4mg cap ORAL SCH (20:19)
--- NOTE | 2019-11-28 22:47 | Psych Consult Progress Note ---
Psychiatry Progress Note Psychiatry Progress Note Subjective the pt is confused and reusing IV and supra pubic cath insert the pt lacks capacity to make decisions. the pt is uncooperative but not agitated Medications Current Medications Medications (Trade) Dose Ordered Sig/Stiven Route PRN Reason Start Time Stop Time Status Last Admin Dose Admin Acetaminophen (Tylenol) 500 mg Q4H PRN ORAL Mild Pain (Pain Scale 1-3) 11/26/19 16:45 12/26/19 16:44 Acetaminophen (Tylenol) 650 mg Q4H PRN ORAL Mild Pain (Pain Scale 1-3) 11/26/19 15:45 12/26/19 15:44 Acetaminophen (Tylenol) 650 mg Q4H PRN ORAL Temp >100.5 11/26/19 15:45 12/26/19 15:44 Acetaminophen/ Hydrocodone Bitart ([place] 5/325) 1 tab Q6H PRN ORAL Moderate Pain (Pain Scale 4-6) 11/27/19 07:00 12/04/19 06:59 11/28/19 18:13 Docusate Sodium (Colace) 100 mg DAILY ORAL 11/27/19 09:00 12/27/19 08:59 11/28/19 10:00 Gabapentin (Neurontin) 100 mg DAILY ORAL 11/27/19 09:00 12/27/19 08:59 11/28/19 09:59 Haloperidol Lactate (Haldol) 5 mg Q6H PRN IM Agitation 11/26/19 16:45 01/10/20 16:44 11/27/19 08:29 Heparin Sodium (Porcine) (Heparin 5000 units/ml) 5,000 units EVERY 12 HOURS SUBQ 11/26/19 21:00 01/10/20 20:59 11/28/19 20:23 Hydromorphone HCl (Dilaudid) 0.5 mg Q3H PRN IVP Severe Pain (Pain Scale 7-10) 11/27/19 07:00 12/04/19 06:59 Lorazepam (Ativan 2mg/ml 1ml) 2 mg Q6H PRN IM Agitation 11/27/19 11:15 12/04/19 11:14 Multivitamins (Multivitamins) 1 tab DAILY ORAL 11/27/19 09:00 12/27/19 08:59 11/28/19 10:00 Olanzapine (ZyPREXA) 5 mg DAILY ORAL 11/27/19 09:00 01/11/20 08:59 11/28/19 10:00 Olanzapine (ZyPREXA) 10 mg BEDTIME ORAL 11/27/19 21:00 01/11/20 20:59 11/28/19 20:19 Ondansetron HCl (Zofran) 4 mg Q6H PRN IVP Nausea & Vomiting 11/26/19 15:45 12/26/19 15:44 Piperacillin Sod/ Tazobactam Sod 3.375 gm/Sodium Chloride 110 ml @ 27.5 mls/hr Q8H IVPB 11/26/19 21:00 12/03/19 20:59 11/27/19 05:00 Tamsulosin HCl (Flomax) 0.4 mg BEDTIME ORAL 11/26/19 21:00 12/26/19 20:59 11/28/19 20:19 Allergies: Coded Allergies: No Known Allergies (Unverified , 06/20/19) Objective Data Height (Feet): 5 Height (Inches): 9.00 Weight (Pounds): 170 General Appearance: WD/WN, no apparent distress, confused Additional Comments: awake and disoriented. Mood is anxious. Affect is flat. Thought process is concrete. Thought content, positive for delusions. Cognition is impaired. Insight and judgment impaired. Assessment/Plan Assessment/Plan: ASSESSMENT: Acute encephalopathy. PLAN: 1. the pt lacks capacity to make decisions 2.haldol and Ativan IM. 3. Zyprexa.Sami Cody MD Nov 28, 2019 22:47
[2019-11-29] VITALS: BP 120/87
[2019-11-29] MEDS: HYDROcodone/Acetamin 5/325 tab ORAL PRN (01:34)
[2019-11-29 03:32] VITALS: BP 129/66
[2019-11-29] MEDS: Piperacillin/Tazobactam 3.375 GM in NS 110 ML IVPB SCH (03:52)
--- NOTE | 2019-11-29 05:00 | NUR ---
NURSE NOTES: Pt uncooperative and refused IV insertion for zosyn scheduled @ 0500. Refused dressing change on supra pubic cath site. Education given but still refused x 3
--- NOTE | 2019-11-29 07:20 | NUR ---
HAND-OFF: Report given to ASHVIN Raza.
--- NOTE | 2019-11-29 07:25 | NUR ---
NURSE NOTES: Received patient in bed. Awake, Alert x2. On room air. Denies pain at this time. Side rails up x2, bed low and locked.
[2019-11-29 08:00] VITALS: BP 123/73
--- NOTE | 2019-11-29 08:27 | General Progress Note ---
Assessment/Plan Assessment/Plan: Impression: Suprapubic catheter dysfunction Urinary tract infection Covid19 infection+ Previous DVT Hypertension paraparesis Plan: Urology Consultation noted - patient refusing reinsertion Suprapubic IV Antibiotics-adjusted isolation Psychiatric Consultation noted Monitor labs dc planning to snf if possible today impression, plan, and exam edited and reviewed in detail care discussed with RN Subjective Allergies: Coded Allergies: No Known Allergies (Unverified , 06/20/19) Subjective care noted refusing SP placement Objective Last 24 Hour Vital Signs Date Time Temp Pulse Resp B/P (MAP) Pulse Ox O2 Delivery O2 Flow Rate FiO2 11/29/19 03:32 97.7 62 19 129/66 (87) 99 11/29/19 00:00 96.9 86 20 120/87 (98) 95 11/28/19 21:00 Room Air 11/28/19 20:00 97.9 68 20 129/76 (93) 94 11/28/19 16:00 97.3 71 18 132/81 (98) 100 11/28/19 12:00 98.0 71 18 122/71 (88) 100 11/28/19 09:00 Room Air Intake and Output 11/28/19 11/29/19 19:00 07:00 Intake Total 350 ml Output Total 1100 ml 500 ml Balance -750 ml -500 ml Other 350 ml Output Urine Total 1100 ml 500 ml # Voids 3 Height (Feet): 5 Height (Inches): 9.00 Weight (Pounds): 170 Objective WDWN NAD clear breath sounds bilaterally without rhonchi or wheeze [id number] without MRG NABS nontender no HSM no CCE nonfocal confused paraparesis Venu Joseph MD Nov 29, 2019 08:27
[2019-11-29] MEDS: Docusate 100mg cap ORAL SCH (08:41)
[2019-11-29] MEDS: Heparin 5000 units/ml inj SUBQ SCH (08:44)
[2019-11-29] MEDS ORDERED: cefTRIAXone 1 GM in D5W 55 ML IVPB SCH (09:00)
[2019-11-29] MEDS ORDERED: Bactrim-DS 1 tab ORAL SCH (09:00)
--- NOTE | 2019-11-29 09:21 | NUR ---
NURSE NOTES: Unable to give 0900 IV rocephin. Patient has no IV access. Patient asked if ok to insert a new IV line for ATB administration. Patient refused x3. Risks and benefits explained to patient. previously made aware.
--- NOTE | 2019-11-29 10:23 | NUR ---
*-*DISCHARGE PLANNING*-* PATIENT HAS BEEN REFERRED TO: [facility] P: [phone] F: [phone] Addendum: 11/29/19 at 1247 by IGLESIA ALVAREZ LVN LVN FOLLOW UP CALL MADE TO [facility]. S/W THANIA. PATIENT ACCEPTED TO RETURN WITH FOLLOWING BED ASSIGNMENT [address] [address] IRON FELIZ. AWAITING CALL BACK IN RE TO DC ORDER. Addendum: 11/29/19 at 1248 by IGLESIA ALVAREZ LVN LVN REPLY BACK FROM DR MORENO WITH ORDER TO DC TO SNF. NOTED AND CARRIED OUT. ASHVIN HUANG.
--- NOTE | 2019-11-29 10:32 | NUR ---
Ultrasound: Per Dr. Nieto on 11/28/19 the complete study needs to be done once pt is in recovery or tests negative for Covid19
--- NOTE | 2019-11-29 10:55 | NUR ---
*-* INSURANCE *-* UPDATED CLINICALS AND REVIEW HAVE BEEN FAXED TO: [facility] NUNO#[id number] #[phone] FAX#[phone] REVIEWS/CLINICALS
[2019-11-29 12:00] VITALS: BP 108/67
--- NOTE | 2019-11-29 13:15 | NUR ---
*-*DISCHARGE PLANNED*-* PATIENT HAS BEEN ACCEPTED AND WILL BE DISCHARGED BACK TO: [facility] P: [phone] RM# [id number] SET FOR 2:45PM S/W SANDHYA [id number] PLACED A CALL TO NEXT TO [facility], NO ANSWER LEFT A VOICE MESSAGE
[2019-11-29] MEDS ORDERED: ROCEPHIN250 MG IM (13:28)
[2019-11-29] MEDS ORDERED: BACTRIM DS TAB1 EAC1 ORAL (13:29)
--- NOTE | 2019-11-29 16:56 | NUR ---
NURSE NOTES: Patient d/c via [facility] ambulance. Report given to EMT. Report given to Paula RN at [facility]. ID band removed. Belongings list verified. Patient stable. VSS.
--- NOTE | 2019-11-30 02:15 | Progress Note ---
DATE: 11/29/2019 SUBJECTIVE: The patient is overall calm, manageable and suprapubic placement and he has been voiding. The patient looks agitated and manageable. MENTAL STATUS EXAMINATION: Alert and confused. Mood is neutral. Affect is flat. Thought process is concrete. Thought content, no suicidal or homicidal ideation. Cognition is impaired. Insight and judgment is poor. ASSESSMENT: Stable. PLAN: 1. We will continue current medications. 2. Provide the patient with reality orientation and supportive therapy. Sami Estrada M.D. DR: NOAH JOB#: [id number] CC:
--- NOTE | 2019-11-30 12:59 | NUR ---
*-* INSURANCE *-* UPDATED CLINICALS AND DISCHARGE INSTRUCTION HAVE BEEN FAXED TO: (NO DISCHARGE SUMMARY IN THE SYSTEM) [facility]#[id number] #[phone] FAX#[phone] REVIEWS/CLINICALS
--- NOTE | 2019-12-01 09:41 | Discharge Summary ---
Discharge Summary Discharge Summary _ DATE OF ADMISSION: 11/26/2019 DATE OF DISCHARGE: 11/29/2019 DISCHARGED BY: Dr. Joseph REASON FOR ADMISSION: 64 years old male, [facility], with past medical history of hypertension, dementia, history of CVA, urinary retention, status post placement of suprapubic catheter, psychotic disorder presented for evaluation due to clogged suprapubic catheter. Patient was prior tested positive for COVID-19. However patient had no symptoms. He denied shortness of breath , chest pain No fevers, no chills. No congestion. Patient complained of suprapubic pain. Upon evaluation vital signs were stable. Laboratory work-up was stable. Attempts to replace suprapubic catheter at the bedside in ED were unsuccessful. Urologist consulted. Urologist removed old catheter and replaced with a new suprapubic catheter. Urinalysis revealed pyuria, hematuria, many bacteria , +4 protein. Urologist recommended IV antibiotic and admission. CONSULTANTS: urologist Dr. Riojas psychiatrist Dr. Estrada [facility] COURSE: Patient admitted to medical surgical floor. Patient was kept in isolation. Patient started on empiric antibiotics. SNF medication resumed. Urine culture revealed Morganella MRSA and enterococci. Antibiotic optimized based on culture. DVT prophylaxis provided. Urologist followed-up. Patient removed the other suprapubic catheter and refused replacement. Urine output was closely monitored. Flomax added. Patient was able to void. Psychiatrist seen and evaluated patient . Per psychiatrist patient lack capacity to make decision. Psychiatric medication regimen was optimized. Patient clinically stabilized. Behavior was controlled Patient was stable for transfer back to jail facility for continuation of care. FINAL DIAGNOSES: Suprapubic catheter malfunction , status post replacement Urinary retention Acute encephalopathy Urinary tract infection Positive COVID-19 infection History of DVT Hypertension DISCHARGE MEDICATIONS: See Medication Reconciliation list. DISCHARGE INSTRUCTIONS: Patient was discharged to the jail facility. Follow up with medical doctor at the facility. I have been assigned to dictate discharge summary for this account. I was not involved in the patient's management. Jacki Knutson NP Dec 01, 2019 09:41
--- NOTE | 2019-12-01 13:45 | NUR ---
*-* INSURANCE *-* DISCHARGE SUMMARY HAVE BEEN FAXED TO: [facility] NUN[facility]#[id number] #[phone] FAX#[phone] REVIEWS/CLINICALS
== END 2019-11-29 16:58 | DRG 466 ==
LOC: EDUNIT# 08:19 → EDBD 08:19 → EMR 08:33 → 4E 15:32 → EDBEDREQ 15:37 → 4E 16:31
PROC: 0T2BX0Z Change Drainage Device in Bladder, External Approach (ICD-10-PCS; principal; 2019-11-26)
DX: T83.510A Infection and inflammatory reaction due to cystostomy catheter, initial encounter (principal); N99.511 Cystostomy infection; Y83.3 Surgical operation with formation of external stoma as the cause of abnormal reaction of the patient, or of later complication, without mention of misadventure at the time of the procedure; U07.1 COVID-19; R33.9 Retention of urine, unspecified; I10 Essential (primary) hypertension; Z86.718 Personal history of other venous thrombosis and embolism; F99 Mental disorder, not otherwise specified; G93.40 Encephalopathy, unspecified; G82.20 Paraplegia, unspecified; Z91.19 Patient's noncompliance with other medical treatment and regimen
CPT/HCPCS: 36415; 74018; 80048; 81003; 85007; 85025; 87081; 87086; 87181; 96365; 96366; 96367; 96372; 96375; 99285